=== PATIENT | male | born 1990 | race Caucasian/White ===

== ENCOUNTER 2017-04-05 15:03 | Emergency (ER) | payer BC ==
--- NOTE | ~2017-04-05 | ER ---
PATIENT'S NAME: LUIZ JOSHUA [facility] AGE: 26 Y [address] ROOM: [place] [id number] LOCATION: [facility] ADMIT DATE: 04/05/2017 ER/Outpatient Report DISCHARGE DATE: 04/05/2017 FAMILY PHYSICIAN: Angus Joshua MD ATTENDING PHYSICIAN: Romel Hewitt TIME SEEN: 1515 hours. CHIEF COMPLAINT: Right knee pain. HISTORY OF PRESENT ILLNESS: The patient is a 26-year-old male, said he was getting ready to go to work, he was putting on his jeans when he had a sudden onset of pain and heard a pop involving his right knee. He said last couple of days he has had some mild discomfort in his knee, mostly on the medial side. MEDICAL ALLERGIES: Codeine causes nausea. CURRENT MEDICATIONS: Lisinopril and hydrochlorothiazide. MEDICAL HISTORY: Hypertension, he has had a previous torn meniscus involving his left knee. SOCIAL HISTORY: Nonsmoker. His work requires a lot a walking and standing. REVIEW OF SYSTEMS: GENERAL: Denies fever or chills. GASTROINTESTINAL: No nausea or vomiting. MUSCULOSKELETAL: The right knee pain. NEURO: No numbness or tingling to the right leg. OBJECTIVE FINDINGS: VITAL SIGNS: Blood pressure was 123/65, he had a temperature of 98, his respiratory rate 16, pulse 74, and O2 saturations 97%. GENERAL: The patient had to be brought back to the exam room via wheelchair. He was well nourished, alert, oriented. MUSCULOSKELETAL: Exam of the right knee showed no joint effusion or redness. He had some medial knee tenderness and some posterior. He was able to extend his right leg completely. He had good quadriceps function. Flexion was about 90 degrees. PATIENT'S NAME: LUIZ JOSHUA [facility] AGE: 26 Y [address] ROOM: [place] [id number] LOCATION: [facility] ADMIT DATE: 04/05/2017 ER/Outpatient Report DISCHARGE DATE: 04/05/2017 FAMILY PHYSICIAN: Angus Joshua MD ATTENDING PHYSICIAN: Romel Hewitt IMAGING: X-ray of the knee showed no bony injuries. ASSESSMENT: Right knee pain. PLAN: Knee immobilizer, crutches, ice 10-15 minutes every couple of hours. Recommended that he follow up with [facility] within the next 48 hours. Otherwise, for pain ibuprofen 800 mg 3 times a day for no longer than 5 days. [facility]LO[facility]D CHRISTENSEN FOR DO ERVIN AMADOR/modl /[id number] d: 04/05/17 2306 t: 04/11/17 0914, OUTPATIENT REPORT
== END 2017-04-05 15:55 ==
LOC: GACC 15:03
PROC: 2W3LXYZ Immobilization of Right Lower Extremity using Other Device (ICD-10-PCS; principal; 2017-04-05)
DX: M25.561 Pain in right knee (principal); I10 Essential (primary) hypertension; Z88.5 Allergy status to narcotic agent; Z79.899 Other long term (current) drug therapy